=== PATIENT | female | born 1985 | race Caucasian/White ===

== ENCOUNTER 2022-11-09 08:33 | Inpatient (IN) ==
[2022-11-09] MEDS ORDERED: SODIUM CHLORIDE 0.9% 1,000 ML IV STA (08:52)
[2022-11-09 09:32] LABS: Alanine Aminotransferase 53 U/L (13-56); Albumin 4.1 G/DL (3.4-5.0); Alkaline Phosphatase 77 U/L (45-117); Aspartate Amino Transferase 23 U/L (0-37); Blood Urea Nitrogen 10 MG/DL (7-18); Calcium 8.6 MG/DL (8.5-10.1); Carbon Dioxide 22 MMOL/L (21-32); Chloride 106 MMOL/L (98-107); Glucose 114 MG/DL (74-106); Osmolality,Calculated 269.1 MOS/KG (273-304); Potassium 3.5 MMOL/L (3.5-5.1); Sodium 135 MMOL/L (136-145); Total Protein 7.7 G/DL (6.4-8.2)
[2022-11-09 09:35] LABS: Basophils % 0.2 % (0.0-0.8); Hematocrit 29.9 VOL% (35.7-47.0); Hemoglobin 9.5 GM/DL (12.0-16.0); Immature Granulocytes % 1.2 %; Immature Granulocytes Absolute 0.27 #; Lymphocytes # 0.5 10*3/uL (1.4-4.0); Mean Corpuscular HGB Conc 31.8 GM/DL (32-36); Mean Corpuscular Volume 86.9 FL (87-102); Mean Platelet Volume 10.3 FL (9.6-12.0); Monocytes # 1.1 10*3/uL (0.11-0.8); Monocytes % 4.9 % (1.7-12.7); Neutrophils % 91.7 % (38.7-73.9); Platelet Count 156 T/CUMM (130-400); Red Blood Count 3.44 MC/CUMM (3.8-5.5); Red Cell Distribution Width 12.8 % (9.3-17.3); White Blood Count 22.92 T/CUMM (4-12)
[2022-11-09 09:52] LABS: Hypochromia Slight; Lymphocytes 1 % (20-55); Microcytosis Slight; Platelet Estimate Adequate; Total Cells Counted 100
[2022-11-09] MEDS ORDERED: ONDANSETRON 4 MG/2 ML VIAL IV STA (12:28)
[2022-11-09] MEDS ORDERED: PIPERACILLIN/TAZOBACTAM 3,375 MG in SODIUM CHLORIDE 0.9% 100 ML IV STA (12:28)
[2022-11-09] MEDS ORDERED: HYDROmorphone 1 MG/1 ML SYRINGE IV STA (12:28)
[2022-11-09] MEDS ORDERED: fentaNYL 100 MCG/2 ML VIAL ONE ×2 (12:47→13:28)
[2022-11-09] MEDS ORDERED: LIDOCAINE 2% 5 ML VIAL ONE (12:47)
[2022-11-09] MEDS ORDERED: SEVOFLURANE 1 UNIT/15 MINUTE INH ONE (12:47)
[2022-11-09] MEDS ORDERED: propofoL 200 MG/20 ML VIAL IV ONE (12:47)
[2022-11-09] MEDS ORDERED: ONDANSETRON 4 MG/2 ML VIAL ONE (12:47)
[2022-11-09] MEDS ORDERED: MIDAZOLAM 2 MG/2 ML VIAL ONE (12:47)
[2022-11-09] MEDS ORDERED: SUCCINYLCHOLINE 200 MG/10 ML VIAL ONE (12:47)
[2022-11-09] MEDS ORDERED: ROCURONIUM 50 MG/5 ML VIAL IV ONE (12:47)
[2022-11-09] MEDS ORDERED: TISSUE ADHESIVE 1 EACH APPLICATOR TOP ONE (12:49)
[2022-11-09] MEDS ORDERED: ALBUTEROL/IPRATROPIUM 3 ML NEB RESP TX PRN (12:56)
[2022-11-09] MEDS ORDERED: HYDROmorphone 1 MG/1 ML SYRINGE IV PRN ×3 (12:56→14:06)
[2022-11-09] MEDS ORDERED: KETOROLAC 30 MG/1 ML VIAL IV PRN (12:56)
[2022-11-09] MEDS ORDERED: ONDANSETRON 4 MG/2 ML VIAL IV PRN ×2 (12:56→14:06)
[2022-11-09] MEDS ORDERED: ACETAMINOPHEN 325 MG TABLET PO PRN (12:56)
[2022-11-09] MEDS ORDERED: BISACODYL 5 MG TABLET PO PRN (12:56)
[2022-11-09 13:09] LABS: Urine Color Yellow (Yellow)
[2022-11-09 13:10] LABS: Bilirubin,Urine Negative (Negative); Blood, Urine Negative (Negative); Glucose,Urine (UA) Negative (Negative); Ketones,Urine Negative (Negative); Nitrite,Urine Negative (Negative); Protein,Urine Negative (Negative); Urine Appearance Clear (Clear); Urine Specific Gravity 1.015 (1.001-1.035)
[2022-11-09 13:12] LABS: Hyaline Casts,Urine 3 /LPF (0-3); Mucus,Urine Moderate /LPF (Occasional); RBC,Urine <1 /HPF (0-4); Squamous Epithelial Cell,Urine Occasional /HPF (0-10)
[2022-11-09] MEDS ORDERED: PHENYLEPHRINE 1 MG/10 ML SYRINGE IV ONE ×2 (13:20→13:22)
[2022-11-09] MEDS ORDERED: ACETAMINOPHEN INJ 1,000 MG/100 ML VIAL IV ONE (13:25)
[2022-11-09] MEDS ORDERED: MEPERIDINE 25 MG/1 ML VIAL IV PRN (14:06)
[2022-11-09] MEDS: GABAPENTIN 300 MG CAPSULE PO SCH ×2 (17:15→20:45)
[2022-11-09] MEDS: LACTATED RINGERS 1,000 ML IV SCH (17:19)
[2022-11-09] MEDS: AMITRIPTYLINE 50 MG TABLET PO SCH (20:45)
[2022-11-09] MEDS: PIPERACILLIN/TAZOBACTAM 3,375 MG in SODIUM CHLORIDE 0.9% 100 ML IV SCH (20:45)
[2022-11-10] MEDS: PIPERACILLIN/TAZOBACTAM 3,375 MG in SODIUM CHLORIDE 0.9% 100 ML IV SCH ×3 (04:00→20:05)
[2022-11-10] MEDS: LACTATED RINGERS 1,000 ML IV SCH ×3 (04:00→20:05)
[2022-11-10 05:17] LABS: Basophils % 0.3 % (0.0-0.8); Eosinophils # 0.1 10*3/uL (0.0-0.87); Eosinophils % 0.5 % (0.00-10.9); Hematocrit 25.1 VOL% (35.7-47.0); Hemoglobin 8.2 GM/DL (12.0-16.0); Immature Granulocytes % 0.3 %; Immature Granulocytes Absolute 0.03 #; Lymphocytes # 1.2 10*3/uL (1.4-4.0); Lymphocytes % 10.9 % (21.3-54.2); Mean Corpuscular HGB Conc 32.7 GM/DL (32-36); Mean Corpuscular Volume 86.3 FL (87-102); Mean Platelet Volume 11.5 FL (9.6-12.0); Monocytes # 0.6 10*3/uL (0.11-0.8); Monocytes % 5.1 % (1.7-12.7); Neutrophils % 82.9 % (38.7-73.9); Platelet Count 142 T/CUMM (130-400); Red Blood Count 2.91 MC/CUMM (3.8-5.5); Red Cell Distribution Width 12.9 % (9.3-17.3); White Blood Count 11.27 T/CUMM (4-12)
[2022-11-10 05:34] LABS: Calcium 7.9 MG/DL (8.5-10.1); Osmolality,Calculated 277.4 MOS/KG (273-304); Potassium 3.7 MMOL/L (3.5-5.1)
[2022-11-10] MEDS: VERAPAMIL SR 120 MG TABLET PO SCH (08:15)
[2022-11-10] MEDS: PANTOPRAZOLE 40 MG TABLET PO SCH (08:18)
[2022-11-10] MEDS: GABAPENTIN 300 MG CAPSULE PO SCH ×3 (08:18→20:05)
[2022-11-10] MEDS: AMITRIPTYLINE 50 MG TABLET PO SCH (20:05)
[2022-11-11] MEDS: PIPERACILLIN/TAZOBACTAM 3,375 MG in SODIUM CHLORIDE 0.9% 100 ML IV SCH ×2 (04:15→12:09)
[2022-11-11] MEDS: GABAPENTIN 300 MG CAPSULE PO SCH ×2 (08:00→14:10)
[2022-11-11] MEDS: VERAPAMIL SR 120 MG TABLET PO SCH (08:00)
[2022-11-11] MEDS: PANTOPRAZOLE 40 MG TABLET PO SCH (08:00)
[2022-11-11] MEDS: LACTATED RINGERS 1,000 ML IV SCH (08:11)
[2022-11-11 08:57] VITALS: BP 97/62
[2022-11-11] MEDS ORDERED: KETOROLAC 30 MG/1 ML VIAL IV ONE (13:07)
== END 2022-11-11 15:08 | disposition home or self-care (01) | DRG 339 ==
LOC: N.ED 08:33 → N.EDINP 12:56 → N.2E 14:01
PROVIDERS: ADMIT Student in an Organized Health Care Education/Training Program; ATTEND Student in an Organized Health Care Education/Training Program